=== PATIENT | male | born 1970 | race Caucasian/White ===

== ENCOUNTER 2017-01-28 10:37 | Emergency (ER) | payer MEDICAID ==
[2017-01-28 11:30] LABS: BASOPHILS 0.5 % (0-2); EOSINOPHILS 0.6 % (0-7); HEMATOCRIT 47.3 % (42.0-54.0); HEMOGLOBIN 16.3 g/dL (13.5-17.5); IMMATURE GRANULOCYTES 0.2 % (0-5); LYMPHOCYTES 43.4 % (15-50); MCH 32.2 pg (26.0-34.0); MCHC 34.5 g/dL (31.0-37.0); MCV 93.5 fL (80.0-100.0); MEAN PLATELET VOLUME 9.2 fL (7.4-10.4); MONOCYTES 13.6 % (2-11); NEUTROPHILS 41.7 % (40-80); PLATELET COUNT 313 10x3/uL (130-400); RBC 5.06 10x6/uL (4.20-6.10); RDW 13.6 % (11.5-14.5); WBC 6.4 10x3/uL (4.8-10.8)
[2017-01-28 11:46] LABS: ALBUMIN 3.7 g/dL (3.4-5.0); ALKALINE PHOSPHATASE 77 U/L (46-116); ALT (SGPT) 46 U/L (10-68); AMYLASE - SERUM 91 U/L (25-115); BILIRUBIN - TOTAL 0.13 mg/dL (0.2-1.3); CALC OSMOLALITY 283 mosm/kg (275-300); CALCIUM 9.2 mg/dL (8.5-10.1); CARBON DIOXIDE 28.4 mmol/L (21.0-32.0); CHLORIDE - SERUM 102 mmol/L (98-107); CREATININE - SERUM 1.1 mg/dL (0.6-1.3); GLUCOSE 235 mg/dL (74-106); LIPASE 274 U/L (73-393); POTASSIUM - SERUM 4.1 mmol/L (3.5-5.1); PROTEIN - SERUM 7.5 g/dL (6.4-8.2); SODIUM 139 mmol/L (136-145); UREA NITROGEN 8 mg/dL (7-18); eGFR NON AFRICAN AMERICAN 77 mL/min (90-120)
[2017-01-29] MEDS ORDERED: LISINOPRIL10 MG PO (03:58)
[2017-01-29] MEDS ORDERED: METOPROLOL TART50 MG PO (03:59)
[2017-01-29] MEDS ORDERED: XANAX1 MG PO (04:00)
[2017-01-29] MEDS ORDERED: CATAPRES0.1 MG PO (04:01)
[2017-01-29] MEDS ORDERED: NALTREXONE HCL50 MG PO (04:02)
[2017-01-29] MEDS ORDERED: ZOFRAN4 MG PO (04:03)
[2017-01-29 13:16] VITALS: BMI 29.4
== END 2017-01-28 14:55 | disposition home or self-care (01) ==
LOC: D.ER 10:37
PROVIDERS: Emergency Medicine
DX: R10.13 Epigastric pain (principal); F10.10 Alcohol abuse, uncomplicated; K85.90 Acute pancreatitis without necrosis or infection, unspecified; R73.9 Hyperglycemia, unspecified; F17.200 Nicotine dependence, unspecified, uncomplicated

== ENCOUNTER 2017-01-28 18:31 | Inpatient (IN) | payer MEDICAID ==
[~2017-01-28] VITALS: Ht 177.8 cm; Wt 93.0 kg
[2017-01-28 20:50] LABS: ALBUMIN 4.2 g/dL (3.4-5.0); ANION GAP 21.3 mmol/L (8-16); BILIRUBIN - TOTAL 0.22 mg/dL (0.2-1.3); CALCIUM 9.3 mg/dL (8.5-10.1); POTASSIUM - SERUM 4.3 mmol/L (3.5-5.1); PROTEIN - SERUM 7.8 g/dL (6.4-8.2)
[2017-01-28 20:51] LABS: CREATININE - SERUM 1.4 mg/dL (0.6-1.3)
[2017-01-28 21:06] LABS: BASOPHILS 0.2 % (0-2); EOSINOPHILS 0.2 % (0-7); HEMATOCRIT 50.9 % (42.0-54.0); HEMOGLOBIN 17.2 g/dL (13.5-17.5); IMMATURE GRANULOCYTES 0.3 % (0-5); LYMPHOCYTES 13.9 % (15-50); MCH 32.1 pg (26.0-34.0); MCHC 33.8 g/dL (31.0-37.0); MEAN PLATELET VOLUME 9.4 fL (7.4-10.4); MONOCYTES 7.8 % (2-11); NEUTROPHILS 77.6 % (40-80); PLATELET COUNT 281 10x3/uL (130-400); RBC 5.36 10x6/uL (4.20-6.10); RDW 13.8 % (11.5-14.5)
[2017-01-28 21:10] LABS: WBC 17.5 10x3/uL (4.8-10.8)
[2017-01-28 23:23] LABS: APPEARANCE CLEAR (CLEAR); BACTERIA NONE SEEN /hpf (NONE SEEN); BILIRUBIN NEGATIVE (NEGATIVE); COLOR YELLOW (YELLOW); EPITHELIAL CELLS RARE /hpf (0-5); GLUCOSE 50 mg/dL (NEGATIVE); KETONE NEGATIVE (NEGATIVE); LEUKOCYTE ESTERASE NEGATIVE (NEGATIVE); NITRITE NEGATIVE (NEGATIVE); PROTEIN TRACE mg/dL (NEGATIVE); SPECIFIC GRAVITY 1.025 (1.005-1.020); UROBILINOGEN NORMAL (NORMAL); WHITE CELLS - URINE 0-5 /hpf (0-5)
[2017-01-28 23:29] LABS: UDS - AMPHET NEGATIVE QUAL (NEGATIVE); UDS - BARB NEGATIVE QUAL (NEGATIVE); UDS - BENZO POSITIVE QUAL (NEGATIVE); UDS - COCAINE NEGATIVE QUAL (NEGATIVE); UDS - METH NEGATIVE QUAL (NEGATIVE); UDS - OPIATE POSITIVE QUAL (NEGATIVE); UDS - PCP NEGATIVE QUAL (NEGATIVE); UDS - THC POSITIVE QUAL (NEGATIVE)
[2017-01-29] VITALS: BP 176/92
[2017-01-29 00:10] VITALS: BP 176/92; BMI 29.4
[2017-01-29] MEDS ORDERED: LISINOPRIL10 MG PO (03:58)
[2017-01-29] MEDS ORDERED: METOPROLOL TART50 MG PO (03:59)
[2017-01-29 04:00] VITALS: BP 156/71; BP 194/121
[2017-01-29] MEDS ORDERED: XANAX1 MG PO (04:00)
[2017-01-29] MEDS ORDERED: CATAPRES0.1 MG PO (04:01)
[2017-01-29] MEDS ORDERED: NALTREXONE HCL50 MG PO (04:02)
[2017-01-29] MEDS ORDERED: ZOFRAN4 MG PO (04:03)
--- NOTE | 2017-01-29 07:15 | NUR ---
REPORT RECEIVED FROM SUPERVISOR GENERAL NURSE. CALL LIGHT IN REACH.
--- NOTE | 2017-01-29 08:04 | NUR ---
ASSESSMENT COMPLETED. ATIVAN IVP PER SEVERE ANXIETY. OFFERED SCDs BUT REFUSED. DR. COX IN ROOM TO EXAMINE PATIENT. CALL LIGHT IN REACH. WILL CONTINUE WITH PLAN OF CARE.
--- NOTE | 2017-01-29 08:35 | NUR ---
SBP WILL NOT READ ON MACHINE, DBP 141. NEW ORDER FOR CLONIDINE 0.1MG PO AND DILAUDID 1 MG NOW. ADMINISTERED PER ORDER AND ALSO LIBRIUM. PATIENT IS NOW REQUESTING ANOTHER DOSE AT 9. I HAVE EXPLAINED TO HIM THAT HE CANNOT HAVE ANYMORE NARCOTICS AT THIS TIME. PATIENT IS BEGGING FOR MORE AND I EXPLAINED TO HIM AGAIN.
[2017-01-29 09:21] LABS: AMYLASE - SERUM 217 U/L (25-115); LIPASE 2505 U/L (73-393)
--- NOTE | 2017-01-29 10:16 | NUR ---
STATES HE CONTINUES TO VOMIT. PHENERGAN 25 MG IM AND DILAUDID 2 MG SIVP PER C/O PAIN OF 10. OK TO START NEW DOSAGE OF [address] COX.
--- NOTE | 2017-01-29 12:05 | NUR ---
IN BED WITH EYES CLOSED. RESP EVEN AND UNLABORED. CALL LIGHT IN REACH.
[2017-01-29 12:21] VITALS: BP 207/137
[2017-01-29 13:16] VITALS: Ht 177.8 cm; Wt 93.0 kg
--- NOTE | 2017-01-29 14:05 | NUR ---
RESTING,WITHOUT NEEDS.CALL LIGHT IN REACH
--- NOTE | 2017-01-29 14:42 | NUR ---
ATIVAN AND DILAUDID IV. CLONIDINE AND LIBRIUM PO. CALL LIGHT IN REACH.
[2017-01-29 15:47] VITALS: BP 195/139
--- NOTE | 2017-01-29 16:17 | NUR ---
LYING IN BED WITH EYES CLOSED. RESP EVEN AND UNLABORED. CALL LIGHT IN REACH.
--- NOTE | 2017-01-29 16:40 | NUR ---
GIVEN 10 MG APRESOLINE SLOW IVP FOR BP 195/137. HEART RATE 132. WILL MONITOR.
--- NOTE | 2017-01-29 18:23 | NUR ---
DR. GEORGES IN ROOM. IV FLUIDS INCREASED TO 200 CC/HR. DILAUDID IVP PER ORDER. NO OTHER CHANGES IN INITIAL ASSESSMENT. STILL REFUSES SCDs. CALL LIGHT IN REACH. WILL CONTINUE WITH PLAN OF CARE.
[2017-01-29 20:00] VITALS: BP 154/115
[2017-01-30] VITALS: BP 132/83; BP 143/65
--- NOTE | 2017-01-30 01:10 | NUR ---
ASSESSED AT THE BEGINNING OF THE SHIFT. PT IS ALERT AND ORIENTED, ABLE TO VERBALIZE NEEDS. HE IS ABLE TO GET UP TO THE BATHROOM AD GRETEL AND IS ALL OVER THE ROOM AND BED. HIS BP WAS ELEVATED AT EH BEGINNING OF THE SHIFT AND HE HAD A PRN FOR THIS WHICH HE RECEIVED AND IT VROUGHT IT DOWN. NW WE ARE HAVING A PROBLEM WITH HIS HEART RATE BEING IN THE 130'S. IT GETS SLOWER WHEN HE IS ASLEEP BUT WHILE UP AND DOING THINGS IN HIS ROOM IT IS UP THERE. HE HAS AN ORDER TO RUN HIS IV FLUIDS AT 200CC'S AN HR AND WITH HIS BANANA BAG GOING IT IS GIVING HIM THIS AMT. THE BED IS LOW, RAILS UP X'S 2 WITH THE CALL LIGHT AT HAND.
[2017-01-30 04:00] VITALS: BP 135/94
[2017-01-30 06:06] LABS: BASOPHILS 0.1 % (0-2); EOSINOPHILS 0.5 % (0-7); HEMATOCRIT 46.6 % (42.0-54.0); HEMOGLOBIN 15.6 g/dL (13.5-17.5); IMMATURE GRANULOCYTES 0.2 % (0-5); LYMPHOCYTES 16.4 % (15-50); MCH 31.6 pg (26.0-34.0); MCHC 33.5 g/dL (31.0-37.0); MCV 94.5 fL (80.0-100.0); MEAN PLATELET VOLUME 9.6 fL (7.4-10.4); MONOCYTES 6.7 % (2-11); NEUTROPHILS 76.1 % (40-80); RBC 4.93 10x6/uL (4.20-6.10); RDW 13.7 % (11.5-14.5)
[2017-01-30 06:11] LABS: PLATELET COUNT 201 10x3/uL (130-400); WBC 10.6 10x3/uL (4.8-10.8)
[2017-01-30 06:21] LABS: HEMOGLOBIN A1C 6.4 % (4.8-6.0)
[2017-01-30 06:27] LABS: ALBUMIN 3.1 g/dL (3.4-5.0); ALKALINE PHOSPHATASE 95 U/L (46-116); ALT (SGPT) 28 U/L (10-68); AMYLASE - SERUM 186 U/L (25-115); BILIRUBIN - TOTAL 1.03 mg/dL (0.2-1.3); CALC OSMOLALITY 265 mosm/kg (275-300); CALCIUM 8.3 mg/dL (8.5-10.1); CARBON DIOXIDE 25.6 mmol/L (21.0-32.0); CHLORIDE - SERUM 101 mmol/L (98-107); GLUCOSE 142 mg/dL (74-106); LIPASE 1407 U/L (73-393); POTASSIUM - SERUM 4.2 mmol/L (3.5-5.1); PROTEIN - SERUM 6.4 g/dL (6.4-8.2); SODIUM 132 mmol/L (136-145); UREA NITROGEN 11 mg/dL (7-18); eGFR NON AFRICAN AMERICAN 86 mL/min (90-120)
--- NOTE | 2017-01-30 07:05 | NUR ---
PATIENT RECEIVED ALERT IN MID CORONEL POSITION. RESPIRATIONS EVEN AND UNLABORED. SIDE RAILS UP X2. BED IN LOW POSITION. CALL LIGHT IN REACH.
[2017-01-30 07:57] VITALS: BP 126/83
--- NOTE | 2017-01-30 08:32 | NUR ---
ALERT IN BED. NO SIGNS OF DISTRESS NOTED. SCHEDULED MEDICATION ADMINISTERED WELL PRN DILAUDID AND ATIVAN. IV TO RIGHT AC PATENT. NO REDNESS OR INFLAMMATION NOTED. FLUSHES EASY AND IVF INFUSING WITHOUT DIFFICULTY. SIDE RAILS UP X2. BED IN LOW POSITION. CALL LIGHT IN REACH.
--- NOTE | 2017-01-30 11:03 | CN ---
PATIENT NAME:EPIFANIO PHILLIPS MEDICAL RECORD: [id number] : 74 LOCATION:[facility] ADMIT DATE: 01/28/17 ACCOUNT: [id number] CONSULTING PHYSICIAN: MARTA GEORGES MD REFERRING PHYSICIAN: MOISES ISAAC MD DATE OF CONSULTATION: 01/29/2017 GASTROENTEROLOGY CONSULTATION DATE OF CONSULTATION: 01/29/2017. REFERRING PHYSICIAN: Dr. Moises Isaac. 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 He has been in and out of the hospital multiple times over the past year, today with the same symptoms. He actually had one episode of hematemesis several months ago, which led to an EGD which revealed mild esophagitis only. He continues to drink alcohol. On admission, a CT revealed minimal evidence of pancreatitis. His lipase was 2500. PAST MEDICAL HISTORY: As above. He does have hypertension and reflux esophagitis as well as depression. PAST SURGICAL HISTORY: Remarkable for tonsillectomy, neck surgery and jaw surgery. ALLERGIES: LOVENOX. HOME MEDICATIONS: Include lisinopril, Xanax, Lopressor, clonidine, Zofran and Naltrexone. He supposedly is on Protonix, but apparently has not been compliant on taking that. FAMILY HISTORY: Negative for GI diseases. SOCIAL HISTORY: The patient is a longtime smoker and drinker of alcohol. REVIEW OF SYSTEMS: Noncontributory other than in the HPI. PHYSICAL EXAMINATION: GENERAL: Reveals a middle-aged white male in no acute distress. VITAL SIGNS: Stable, afebrile. CHEST: Clear. HEART: Regular rate and rhythm. ABDOMEN: Soft with mild to moderate upper abdominal tenderness. EXTREMITIES: No edema. LABORATORY DATA: Reveals a white count of 17,000, hematocrit is 50, BUN 10, creatinine 1.4, platelet count 281,000. Electrolytes are normal. CT of the abdomen is as above. IMPRESSION: 1. Yspff-fi-[id number] pancreatitis due to alcohol abuse. 2. Dehydration secondary to #1. CONSULT REPORT [id number] EPIFANIO PHILLIPS RECOMMENDATION: 1. Vigorous IV fluids and bowel rest. 2. Agree with IV Protonix. 3. He needs to stop all alcohol products. 4. Nothing further with ____. We will see on a p.r.n. basis. TRANSINT:[id number] Voice Confirmation ID: [id number] DOCUMENT ID: [id number] MARTA GEORGES MD at 1103 CC: MOISES ISAAC MD [id number] DICTATION DATE: 01/29/17 1809 VAT SKIMMER: 01/30/17 0230 ADM IN [place] [id number] [place] [address]
--- NOTE | 2017-01-30 11:43 | NUR ---
SITTING UP ON SIDE OF BED ALERT. C/O PAIN 05/30. DILAUDID ADMINISTERD SLOW IVP PER PRN ORDER. IV TO RIGHT AC PATENT. NO REDNESS OR INFLAMMATION NOTED. SIDE RAILS UP X2. BED IN LOW POSITION. CALL LIGHT IN REACH.
[2017-01-30 11:45] VITALS: BP 121/88
--- NOTE | 2017-01-30 13:15 | NUR ---
UP AMBULATING IN HALLWAY WITHOUT ASSIST. NO SIGNS OF DISTRESS NOTED. WILL CONTINUE TO MONITOR.
--- NOTE | 2017-01-30 16:04 | NUR ---
C/O PAIN TO ABDOMEN 05/30. DILAUDID ADMINISTERED SLOW IVP PER PRN ORDER. IV TO RIGHT AC PATENT. NO REDNESS OR INFLAMMATION NOTED. BED IN LOW POSITION. CALL LIGHT IN REACH.
[2017-01-30 16:13] VITALS: BP 136/92
[2017-01-30 20:00] VITALS: BP 128/84
[2017-01-31] VITALS: BP 115/62; BP 136/101
[2017-01-31 04:00] VITALS: BP 137/94
[2017-01-31 05:29] LABS: BASOPHILS 0.3 % (0-2); EOSINOPHILS 1.7 % (0-7); HEMATOCRIT 39.5 % (42.0-54.0); HEMOGLOBIN 13.1 g/dL (13.5-17.5); IMMATURE GRANULOCYTES 0.2 % (0-5); LYMPHOCYTES 28.4 % (15-50); MCH 31.4 pg (26.0-34.0); MCHC 33.2 g/dL (31.0-37.0); MCV 94.7 fL (80.0-100.0); MEAN PLATELET VOLUME 9.6 fL (7.4-10.4); MONOCYTES 8.7 % (2-11); NEUTROPHILS 60.7 % (40-80); PLATELET COUNT 163 10x3/uL (130-400); RBC 4.17 10x6/uL (4.20-6.10); RDW 13.4 % (11.5-14.5)
[2017-01-31 05:34] LABS: WBC 6.5 10x3/uL (4.8-10.8)
--- NOTE | 2017-01-31 05:40 | NUR ---
ASSESSED AT THE BEGINNING OF THE SHIFT. PT IS ALERT AND ORIENTED, ABLE TO VERBALIZE NEEDS. HE HAS BEEN UP TO TAKE A SHOWER, WALKING IN THE HALLS, ASKING FOR FOOD, AND WATCHING TV. MOST OF THE TIME HE DOSEN'T APPEAR TO BE HURTING MUCH BUT HE IS WATCHING THE CLOCK FOR TIME AND KEEPING UP WITH WHEN HE GETS HIS DILAUDID AND ATIVAN. ONE TIME HE EVEN ASKED FOR PHENERGAN FOR SLEEP BECAUSE IT WAS TOO EARY FOR HIS ATIVAN. FRANCESCA DILLARD MOVED HIS IV SITE TO THE LEFT FOREARM DUE TO COMPLAINTS OF SORENESS OT HIS RIGHT A/C. AT THIS TIME HE IS IN HIS ROOM AND STATES HE WAS AWAKENED BY SOMEONE KNOCKING ON HIS DOOR BUT THERE WAS NO ONE THERE. THE BED IS LOW, RAILS UP X'S 2 WITH THE CALL LIGHT AT HAND.
[2017-01-31 05:58] LABS: AMYLASE - SERUM 76 U/L (25-115); CALC OSMOLALITY 266 mosm/kg (275-300); CALCIUM 8.4 mg/dL (8.5-10.1); CARBON DIOXIDE 23.8 mmol/L (21.0-32.0); CHLORIDE - SERUM 102 mmol/L (98-107); CREATININE - SERUM 1.1 mg/dL (0.6-1.3); GLUCOSE 104 mg/dL (74-106); LIPASE 360 U/L (73-393); SODIUM 134 mmol/L (136-145); UREA NITROGEN 11 mg/dL (7-18); eGFR NON AFRICAN AMERICAN 77 mL/min (90-120)
--- NOTE | 2017-01-31 08:16 | NUR ---
SCHEDULED MEDICATIONS ADMINISTERED AT THIS TIME. ASSESMENT PERFORMED PER FLOWSHEET. PAIN 5/10 ABDOMINALLY AT THIS TIME. IV TO LEFT FOREARM PATENT WITH NO S/S OF INFILTRATION PRESENT. DENIES NEEDS AT PRESENT. SELF AMBULATORY AND SELF POSITIONS FOR COMFORT.
[2017-01-31 09:06] VITALS: BP 163/97
--- NOTE | 2017-01-31 10:31 | NUR ---
PRN ZOFRAN AND DILAUDID ADMINISTERED PER ORDER. PAIN 7/10 ABDOMINALLY. PT DENIES FURTHER NEEDS AT THIS TIME. HOPEFUL FOR D/C HOME TODAY.
[2017-01-31] MEDS ORDERED: ATIVAN1 MG PO (10:56)
[2017-01-31] MEDS ORDERED: HYDROCODONE-APA1 TAB PO (10:56)
[2017-01-31] MEDS ORDERED: LIORESAL 10 MG10 MG PO (10:56)
--- NOTE | 2017-01-31 11:10 | NUR ---
NOTIFIED DR GEORGES THAT PT HAD D/C ORDERS. HE GAVE HIS APPROVAL FOR D/C AT THIS TIME.
--- NOTE | 2017-01-31 11:20 | NUR ---
PROVIDED WITH SANDWICH TRAY AT THIS TIME TO SEE IF HE CAN TOLERATE REGULAR DIET SO THAT HE MAY DISCHARGE HOME.
--- NOTE | 2017-01-31 11:45 | NUR ---
TOLERATING REGULAR DIET WITHOUT NAUSEA OR VOMITING AT THIS TIME. DISCHARGE PAPERWORK REVIEWED AND IV TO LEFT FOREARM D/C WITH CATH TIP INTACT. DENIES QUESTIONS OR CONCERNS. DISCHARGING HOME WITH COUSIN AT THIS TIME.
== END 2017-01-31 11:45 | disposition home or self-care (01) | DRG 440 ==
LOC: D.ER 18:31 → D.MS 20:12
PROVIDERS: Emergency Medicine; Internal Medicine Gastroenterology; ADMIT Emergency Medicine
DX: K86.0 Alcohol-induced chronic pancreatitis (principal); F10.129 Alcohol abuse with intoxication, unspecified; F17.200 Nicotine dependence, unspecified, uncomplicated; K21.9 Gastro-esophageal reflux disease without esophagitis

== ENCOUNTER 2017-03-16 05:50 | Emergency (ER) | payer MEDICAID ==
[2017-01-29 13:16] VITALS: BMI 29.4
[~2017-03-16 05:50] MED LIST: ATIVAN1 MG PO; CATAPRES0.1 MG PO; HYDROCODONE-APA1 TAB PO; LIORESAL 10 MG10 MG PO; LISINOPRIL10 MG PO; METOPROLOL TART50 MG PO; NALTREXONE HCL50 MG PO; XANAX1 MG PO; ZOFRAN4 MG PO
[2017-03-16 07:03] LABS: BASOPHILS 0.2 % (0-2); EOSINOPHILS 0.5 % (0-7); HEMATOCRIT 52.6 % (42.0-54.0); HEMOGLOBIN 18.5 g/dL (13.5-17.5); IMMATURE GRANULOCYTES 0.1 % (0-5); LYMPHOCYTES 45.7 % (15-50); MCH 32.1 pg (26.0-34.0); MCHC 35.2 g/dL (31.0-37.0); MCV 91.3 fL (80.0-100.0); MEAN PLATELET VOLUME 9.1 fL (7.4-10.4); MONOCYTES 8.2 % (2-11); NEUTROPHILS 45.3 % (40-80); RBC 5.76 10x6/uL (4.20-6.10); RDW 13.8 % (11.5-14.5); WBC 8.3 10x3/uL (4.8-10.8)
[2017-03-16 07:07] LABS: PLATELET COUNT 207 10x3/uL (130-400)
[2017-03-16 07:23] LABS: ALKALINE PHOSPHATASE 142 U/L (46-116); ALT (SGPT) 67 U/L (10-68); AMYLASE - SERUM 66 U/L (25-115); BILIRUBIN - TOTAL 0.71 mg/dL (0.2-1.3); CALC OSMOLALITY 279 mosm/kg (275-300); CALCIUM 8.8 mg/dL (8.5-10.1); CHLORIDE - SERUM 102 mmol/L (98-107); CREATININE - SERUM 0.9 mg/dL (0.6-1.3); GLUCOSE 126 mg/dL (74-106); LIPASE 155 U/L (73-393); POTASSIUM - SERUM 4.1 mmol/L (3.5-5.1); SODIUM 140 mmol/L (136-145); UREA NITROGEN 10 mg/dL (7-18); eGFR NON AFRICAN AMERICAN > 90 mL/min (90-120)
[2017-03-16 07:27] LABS: APPEARANCE CLEAR (CLEAR); BILIRUBIN NEGATIVE (NEGATIVE); COLOR DK YELLOW (YELLOW); GLUCOSE NEGATIVE (NEGATIVE); KETONE NEGATIVE (NEGATIVE); LEUKOCYTE ESTERASE NEGATIVE (NEGATIVE); NITRITE NEGATIVE (NEGATIVE); PROTEIN 3+ mg/dL (NEGATIVE); SPECIFIC GRAVITY 1.015 (1.005-1.020); UROBILINOGEN NORMAL (NORMAL)
[2017-03-16 07:29] LABS: EPITHELIAL CELLS 0-5 /hpf (0-5); RED CELLS - URINE 0-5 /hpf (0-5); WHITE CELLS - URINE 0-5 /hpf (0-5)
[2017-03-16 07:30] LABS: BACTERIA FEW /hpf (NONE SEEN)
== END 2017-03-16 11:40 | disposition home or self-care (01) ==
LOC: D.ER 05:50
PROVIDERS: Emergency Medicine
DX: F10.239 Alcohol dependence with withdrawal, unspecified (principal); F10.20 Alcohol dependence, uncomplicated; K29.20 Alcoholic gastritis without bleeding; F17.200 Nicotine dependence, unspecified, uncomplicated

== ENCOUNTER 2017-03-17 06:12 | Emergency (ER) | payer MEDICAID ==
[2017-01-29 13:16] VITALS: BMI 29.4
[2017-03-17 06:57] LABS: HEMATOCRIT 44.9 % (42.0-54.0); HEMOGLOBIN 15.4 g/dL (13.5-17.5); MCHC 34.3 g/dL (31.0-37.0); MCV 93.2 fL (80.0-100.0); MEAN PLATELET VOLUME 9.2 fL (7.4-10.4); RBC 4.82 10x6/uL (4.20-6.10); RDW 13.7 % (11.5-14.5)
[2017-03-17 07:01] LABS: PLATELET COUNT 165 10x3/uL (130-400); WBC 5.2 10x3/uL (4.8-10.8)
[2017-03-17 07:04] LABS: INR 0.86 (0.85-1.17); PROTIME 11.6 SECONDS (11.6-15.0)
[2017-03-17 07:06] LABS: ALBUMIN 3.4 g/dL (3.4-5.0); ALKALINE PHOSPHATASE 118 U/L (46-116); ALT (SGPT) 58 U/L (10-68); BILIRUBIN - TOTAL 0.36 mg/dL (0.2-1.3); CALC OSMOLALITY 288 mosm/kg (275-300); CALCIUM 8.2 mg/dL (8.5-10.1); CARBON DIOXIDE 24.5 mmol/L (21.0-32.0); CHLORIDE - SERUM 106 mmol/L (98-107); CREATININE - SERUM 0.7 mg/dL (0.6-1.3); GLUCOSE 145 mg/dL (74-106); POTASSIUM - SERUM 3.6 mmol/L (3.5-5.1); PROTEIN - SERUM 6.9 g/dL (6.4-8.2); SODIUM 144 mmol/L (136-145); UREA NITROGEN 9 mg/dL (7-18); eGFR NON AFRICAN AMERICAN > 90 mL/min (90-120)
[2017-03-17 07:51] LABS: EOSINOPHILS 1 % (0-7); LYMPHOCYTES 63 % (15-50); MONOCYTES 5 % (2-11); NEUTROPHILS 28 % (40-80); PLATELET ESTIMATE NORMAL
== END 2017-03-17 10:31 | disposition home or self-care (01) ==
LOC: D.ER 06:12
PROVIDERS: Emergency Medicine Emergency Medical Services
DX: F10.129 Alcohol abuse with intoxication, unspecified (principal); F10.10 Alcohol abuse, uncomplicated; F17.200 Nicotine dependence, unspecified, uncomplicated

== ENCOUNTER 2017-04-27 03:47 | Emergency (ER) | payer MEDICAID ==
[2017-01-29 13:16] VITALS: BMI 29.4
[2017-04-27 04:35] LABS: HEMATOCRIT 48.6 % (42.0-54.0); HEMOGLOBIN 17.3 g/dL (13.5-17.5); MCH 32.5 pg (26.0-34.0); MCHC 35.6 g/dL (31.0-37.0); MCV 91.4 fL (80.0-100.0); MEAN PLATELET VOLUME 9.5 fL (7.4-10.4); RBC 5.32 10x6/uL (4.20-6.10); RDW 14.6 % (11.5-14.5); WBC 5.5 10x3/uL (4.8-10.8)
[2017-04-27 04:38] LABS: PLATELET COUNT 254 10x3/uL (130-400)
[2017-04-27 04:39] LABS: ALBUMIN 4.3 g/dL (3.4-5.0); ALKALINE PHOSPHATASE 93 U/L (46-116); ALT (SGPT) 81 U/L (10-68); AMYLASE - SERUM 90 U/L (25-115); BILIRUBIN - TOTAL 0.29 mg/dL (0.2-1.3); CALC OSMOLALITY 278 mosm/kg (275-300); CALCIUM 9.1 mg/dL (8.5-10.1); CARBON DIOXIDE 22.3 mmol/L (21.0-32.0); CHLORIDE - SERUM 102 mmol/L (98-107); CREATININE - SERUM 0.8 mg/dL (0.6-1.3); GLUCOSE 151 mg/dL (74-106); LIPASE 196 U/L (73-393); POTASSIUM - SERUM 4.5 mmol/L (3.5-5.1); PROTEIN - SERUM 8.6 g/dL (6.4-8.2); SODIUM 139 mmol/L (136-145); UREA NITROGEN 7 mg/dL (7-18); eGFR NON AFRICAN AMERICAN > 90 mL/min (90-120)
[2017-04-27 04:59] LABS: BASOPHILS 2 % (0-2); LYMPHOCYTES 71 % (15-50); MONOCYTES 3 % (2-11); NEUTROPHILS 23 % (40-80); PLATELET ESTIMATE NORMAL; PLATELET MORPHOLOGY PLT CLUMPS PRESENT
== END 2017-04-27 05:53 | disposition left against medical advice (07) ==
LOC: D.ER 03:47
PROVIDERS: Emergency Medicine Emergency Medical Services
DX: K29.00 Acute gastritis without bleeding (principal); F10.10 Alcohol abuse, uncomplicated; F17.200 Nicotine dependence, unspecified, uncomplicated

== ENCOUNTER 2017-05-16 14:01 | Emergency (ER) | payer MEDICAID ==
[2017-01-29 13:16] VITALS: BMI 29.4
[2017-05-16 14:37] LABS: APPEARANCE CLEAR (CLEAR); BILIRUBIN NEGATIVE (NEGATIVE); COLOR YELLOW (YELLOW); GLUCOSE NEGATIVE (NEGATIVE); KETONE SMALL mg/dL (NEGATIVE); LEUKOCYTE ESTERASE NEGATIVE (NEGATIVE); NITRITE NEGATIVE (NEGATIVE); PROTEIN TRACE mg/dL (NEGATIVE); SPECIFIC GRAVITY 1.005 (1.005-1.020); UROBILINOGEN NORMAL (NORMAL)
[2017-05-16 14:40] LABS: BACTERIA FEW /hpf (NONE SEEN); RED CELLS - URINE 0-5 /hpf (0-5); WHITE CELLS - URINE 0-5 /hpf (0-5)
[2017-05-16 16:50] LABS: BASOPHILS 0.5 % (0-2); EOSINOPHILS 0.5 % (0-7); HEMOGLOBIN 16.2 g/dL (13.5-17.5); IMMATURE GRANULOCYTES 0.2 % (0-5); LYMPHOCYTES 49.6 % (15-50); MCH 32.8 pg (26.0-34.0); MCHC 34.5 g/dL (31.0-37.0); MCV 95.1 fL (80.0-100.0); MEAN PLATELET VOLUME 9.2 fL (7.4-10.4); MONOCYTES 9.4 % (2-11); NEUTROPHILS 39.8 % (40-80); PLATELET COUNT 171 10x3/uL (130-400); RBC 4.94 10x6/uL (4.20-6.10); RDW 14.8 % (11.5-14.5); WBC 6.4 10x3/uL (4.8-10.8)
[2017-05-16 17:03] LABS: ALBUMIN 4.3 g/dL (3.4-5.0); ALKALINE PHOSPHATASE 82 U/L (46-116); ALT (SGPT) 194 U/L (10-68); AMYLASE - SERUM 74 U/L (25-115); CALC OSMOLALITY 275 mosm/kg (275-300); CALCIUM 9.1 mg/dL (8.5-10.1); CARBON DIOXIDE 23.2 mmol/L (21.0-32.0); CHLORIDE - SERUM 100 mmol/L (98-107); LIPASE 177 U/L (73-393); MAGNESIUM - SERUM 2.1 mg/dL (1.8-2.4); POTASSIUM - SERUM 4.1 mmol/L (3.5-5.1); PROTEIN - SERUM 8.1 g/dL (6.4-8.2); SODIUM 140 mmol/L (136-145); UREA NITROGEN 6 mg/dL (7-18); eGFR NON AFRICAN AMERICAN 86 mL/min (90-120)
[2017-05-16 17:04] LABS: GLUCOSE 81 mg/dL (74-106)
== END 2017-05-16 18:20 | disposition home or self-care (01) ==
LOC: D.ER 14:01
PROVIDERS: Emergency Medicine
DX: R10.9 Unspecified abdominal pain (principal); F10.10 Alcohol abuse, uncomplicated; R19.7 Diarrhea, unspecified; F17.200 Nicotine dependence, unspecified, uncomplicated

== ENCOUNTER 2017-05-16 22:49 | Emergency (ER) | payer MEDICAID ==
[2017-01-29 13:16] VITALS: BMI 29.4
== END 2017-05-17 02:10 | disposition home or self-care (01) ==
LOC: D.ER 22:49
DX: F10.239 Alcohol dependence with withdrawal, unspecified (principal); R10.13 Epigastric pain; K29.20 Alcoholic gastritis without bleeding; R11.0 Nausea; F17.200 Nicotine dependence, unspecified, uncomplicated

== ENCOUNTER 2017-06-27 10:09 | Emergency (ER) | payer MEDICAID ==
[2017-01-29 13:16] VITALS: BMI 29.4
== END 2017-06-27 12:25 | disposition home or self-care (01) ==
LOC: D.ER 10:09
DX: S29.012A Strain of muscle and tendon of back wall of thorax, initial encounter (principal); W10.9XXA Fall (on) (from) unspecified stairs and steps, initial encounter; Y93.89 Activity, other specified; Y92.029 Unspecified place in mobile home as the place of occurrence of the external cause; F17.200 Nicotine dependence, unspecified, uncomplicated

== ENCOUNTER 2017-09-29 15:18 | Emergency (ER) | payer MEDICAID ==
[2017-01-29 13:16] VITALS: BMI 29.4
[2017-09-29 16:16] LABS: BASOPHILS 0.2 % (0-2); EOSINOPHILS 0.3 % (0-7); HEMATOCRIT 49.2 % (42.0-54.0); HEMOGLOBIN 17.5 g/dL (13.5-17.5); IMMATURE GRANULOCYTES 0.1 % (0-5); LYMPHOCYTES 34.4 % (15-50); MCH 31.9 pg (26.0-34.0); MCHC 35.6 g/dL (31.0-37.0); MCV 89.8 fL (80.0-100.0); MEAN PLATELET VOLUME 9.1 fL (7.4-10.4); MONOCYTES 5.2 % (2-11); NEUTROPHILS 59.8 % (40-80); PLATELET COUNT 174 10x3/uL (130-400); RBC 5.48 10x6/uL (4.20-6.10); RDW 12.9 % (11.5-14.5); WBC 9.6 10x3/uL (4.8-10.8)
[2017-09-29 16:39] LABS: ALBUMIN 4.6 g/dL (3.4-5.0); ALKALINE PHOSPHATASE 104 U/L (46-116); ALT (SGPT) 56 U/L (10-68); AMYLASE - SERUM 87 U/L (25-115); BILIRUBIN - TOTAL 0.87 mg/dL (0.2-1.3); CALC OSMOLALITY 266 mosm/kg (275-300); CALCIUM 9.4 mg/dL (8.5-10.1); CARBON DIOXIDE 20.4 mmol/L (21.0-32.0); CHLORIDE - SERUM 97 mmol/L (98-107); CREATININE - SERUM 0.8 mg/dL (0.6-1.3); GLUCOSE 99 mg/dL (74-106); LIPASE 219 U/L (73-393); PROTEIN - SERUM 8.3 g/dL (6.4-8.2); SODIUM 134 mmol/L (136-145); UREA NITROGEN 10 mg/dL (7-18); eGFR NON AFRICAN AMERICAN > 90 mL/min (90-120)
== END 2017-09-29 17:49 | disposition home or self-care (01) ==
LOC: D.ER 15:18
PROVIDERS: Emergency Medicine
DX: R10.9 Unspecified abdominal pain (principal); R11.10 Vomiting, unspecified; F17.200 Nicotine dependence, unspecified, uncomplicated

== ENCOUNTER 2017-09-30 12:05 | Emergency (ER) | payer MEDICAID ==
[2017-01-29 13:16] VITALS: BMI 29.4
[2017-09-30 12:59] LABS: BASOPHILS 0.3 % (0-2); EOSINOPHILS 0.8 % (0-7); HEMATOCRIT 45.9 % (42.0-54.0); IMMATURE GRANULOCYTES 0.2 % (0-5); MCH 31.4 pg (26.0-34.0); MCHC 34.9 g/dL (31.0-37.0); MEAN PLATELET VOLUME 9.3 fL (7.4-10.4); MONOCYTES 10.3 % (2-11); NEUTROPHILS 57.4 % (40-80); PLATELET COUNT 168 10x3/uL (130-400); RDW 13.1 % (11.5-14.5)
[2017-09-30 13:04] LABS: WBC 6.3 10x3/uL (4.8-10.8)
[2017-09-30 13:09] LABS: APPEARANCE CLEAR (CLEAR); BILIRUBIN NEGATIVE (NEGATIVE); COLOR DK YELLOW (YELLOW); GLUCOSE NEGATIVE (NEGATIVE); KETONE SMALL mg/dL (NEGATIVE); NITRITE NEGATIVE (NEGATIVE); PROTEIN 1+ mg/dL (NEGATIVE); SPECIFIC GRAVITY 1.025 (1.005-1.020); UROBILINOGEN NORMAL (NORMAL)
[2017-09-30 13:12] LABS: BACTERIA FEW /hpf (NONE SEEN); EPITHELIAL CELLS 0-5 /hpf (0-5); MUCUS >1+ /lpf (NONE SEEN); RED CELLS - URINE 0-5 /hpf (0-5)
[2017-09-30 13:20] LABS: ALBUMIN 4.1 g/dL (3.4-5.0); ALKALINE PHOSPHATASE 98 U/L (46-116); CALC OSMOLALITY 280 mosm/kg (275-300); CALCIUM 9.2 mg/dL (8.5-10.1); CARBON DIOXIDE 25.1 mmol/L (21.0-32.0); CHLORIDE - SERUM 103 mmol/L (98-107); GLUCOSE 113 mg/dL (74-106); LIPASE 241 U/L (73-393); SODIUM 141 mmol/L (136-145); UREA NITROGEN 10 mg/dL (7-18); eGFR NON AFRICAN AMERICAN 86 mL/min (90-120)
[2017-09-30 13:21] LABS: ALT (SGPT) 100 U/L (10-68); POTASSIUM - SERUM 4.9 mmol/L (3.5-5.1)
== END 2017-09-30 16:04 | disposition home or self-care (01) ==
LOC: D.ER 12:05
PROVIDERS: Emergency Medicine
DX: R10.9 Unspecified abdominal pain (principal); F10.231 Alcohol dependence with withdrawal delirium; F17.200 Nicotine dependence, unspecified, uncomplicated

== ENCOUNTER → 2017-11-15 11:30 | Outpatient (CLI) | payer MEDICAID ==
[2017-01-29 13:16] VITALS: BMI 29.4
== END | disposition home or self-care (01) ==
LOC: D.MRI 11:30
DX: S46.001A Unspecified injury of muscle(s) and tendon(s) of the rotator cuff of right shoulder, initial encounter (principal)

== ENCOUNTER → 2017-12-23 13:30 | Outpatient (CLI) | payer MEDICAID ==
[2017-01-29 13:16] VITALS: BMI 29.4
== END | disposition home or self-care (01) ==
LOC: D.MRI 13:30
DX: M25.511 Pain in right shoulder (principal)

== ENCOUNTER 2017-12-23 15:24 | Emergency (ER) | payer MEDICAID ==
[2017-01-29 13:16] VITALS: BMI 29.4
== END 2017-12-23 16:33 | disposition home or self-care (01) ==
LOC: D.ER 15:24
DX: G89.18 Other acute postprocedural pain (principal); I10 Essential (primary) hypertension; F17.200 Nicotine dependence, unspecified, uncomplicated

== ENCOUNTER 2017-12-24 12:45 | Emergency (ER) | payer MEDICAID ==
[2017-01-29 13:16] VITALS: BMI 29.4
== END 2017-12-24 14:22 | disposition home or self-care (01) ==
LOC: D.ER 12:45
DX: G89.18 Other acute postprocedural pain (principal); I10 Essential (primary) hypertension; F17.200 Nicotine dependence, unspecified, uncomplicated

== ENCOUNTER 2017-12-26 20:45 | Emergency (ER) | payer MEDICAID ==
[2017-01-29 13:16] VITALS: BMI 29.4
[2017-12-26 22:01] LABS: UDS - AMPHET NEGATIVE QUAL (NEGATIVE); UDS - BARB NEGATIVE QUAL (NEGATIVE); UDS - BENZO POSITIVE QUAL (NEGATIVE); UDS - COCAINE NEGATIVE QUAL (NEGATIVE); UDS - OPIATE POSITIVE QUAL (NEGATIVE); UDS - PCP NEGATIVE QUAL (NEGATIVE); UDS - THC NEGATIVE QUAL (NEGATIVE)
== END 2017-12-26 22:22 | disposition home or self-care (01) ==
LOC: D.ER 20:45
PROVIDERS: Emergency Medicine
DX: G89.18 Other acute postprocedural pain (principal); I10 Essential (primary) hypertension; F17.200 Nicotine dependence, unspecified, uncomplicated

== ENCOUNTER 2018-01-14 00:04 | Emergency (ER) | payer MEDICAID ==
[2017-01-29 13:16] VITALS: BMI 29.4
== END 2018-01-14 01:53 | disposition left against medical advice (07) ==
LOC: D.ER 00:04
DX: S49.91XA Unspecified injury of right shoulder and upper arm, initial encounter (principal); W10.9XXA Fall (on) (from) unspecified stairs and steps, initial encounter; Y93.9 Activity, unspecified; Y92.9 Unspecified place or not applicable

== ENCOUNTER 2018-02-12 22:08 | Emergency (ER) | payer MEDICAID ==
[2017-01-29 13:16] VITALS: BMI 29.4
[2018-02-12 22:28] LABS: APPEARANCE CLEAR (CLEAR); BILIRUBIN NEGATIVE (NEGATIVE); COLOR YELLOW (YELLOW); GLUCOSE NEGATIVE (NEGATIVE); KETONE NEGATIVE (NEGATIVE); NITRITE NEGATIVE (NEGATIVE); PROTEIN 1+ mg/dL (NEGATIVE); SPECIFIC GRAVITY 1.005 (1.005-1.020); UROBILINOGEN NORMAL (NORMAL)
[2018-02-12 22:31] LABS: RED CELLS - URINE 0-5 /hpf (0-5); WHITE CELLS - URINE OCC /hpf (0-5)
[2018-02-12 22:32] LABS: BACTERIA FEW /hpf (NONE SEEN); EPITHELIAL CELLS 0-5 /hpf (0-5)
[2018-02-13 00:03] LABS: BASOPHILS 0.4 % (0-2); EOSINOPHILS 0.8 % (0-7); HEMOGLOBIN 16.1 g/dL (13.5-17.5); IMMATURE GRANULOCYTES 0.1 % (0-5); LYMPHOCYTES 60.8 % (15-50); MCH 32.2 pg (26.0-34.0); MCHC 35.8 g/dL (31.0-37.0); MEAN PLATELET VOLUME 9.3 fL (7.4-10.4); MONOCYTES 6.8 % (2-11); NEUTROPHILS 31.1 % (40-80); RDW 12.6 % (11.5-14.5); WBC 7.1 10x3/uL (4.8-10.8)
[2018-02-13 00:11] LABS: PLATELET COUNT 224 10x3/uL (130-400)
[2018-02-13 00:15] LABS: ALKALINE PHOSPHATASE 110 U/L (46-116); ALT (SGPT) 116 U/L (10-68); AMYLASE - SERUM 71 U/L (25-115); BILIRUBIN - TOTAL 0.25 mg/dL (0.2-1.3); CALC OSMOLALITY 282 mosm/kg (275-300); CALCIUM 8.9 mg/dL (8.5-10.1); CARBON DIOXIDE 26.2 mmol/L (21.0-32.0); CHLORIDE - SERUM 106 mmol/L (98-107); CREATININE - SERUM 0.9 mg/dL (0.6-1.3); GLUCOSE 114 mg/dL (74-106); LIPASE 210 U/L (73-393); POTASSIUM - SERUM 3.8 mmol/L (3.5-5.1); PROTEIN - SERUM 8.1 g/dL (6.4-8.2); SODIUM 143 mmol/L (136-145); UREA NITROGEN 5 mg/dL (7-18); eGFR NON AFRICAN AMERICAN > 90 mL/min (90-120)
== END 2018-02-13 00:32 | disposition left against medical advice (07) ==
LOC: D.ER 22:08
PROVIDERS: Family Medicine
DX: R10.13 Epigastric pain (principal); R00.0 Tachycardia, unspecified

== ENCOUNTER 2018-02-13 13:28 | Emergency (ER) | payer MEDICAID ==
[2017-01-29 13:16] VITALS: BMI 29.4
[2018-02-13 19:40] LABS: UDS - AMPHET NEGATIVE QUAL (NEGATIVE); UDS - BARB NEGATIVE QUAL (NEGATIVE); UDS - BENZO NEGATIVE QUAL (NEGATIVE); UDS - COCAINE NEGATIVE QUAL (NEGATIVE); UDS - OPIATE POSITIVE QUAL (NEGATIVE); UDS - PCP NEGATIVE QUAL (NEGATIVE); UDS - THC NEGATIVE QUAL (NEGATIVE)
== END 2018-02-13 18:11 | disposition home or self-care (01) ==
LOC: D.ER 13:28
PROVIDERS: Emergency Medicine
DX: K29.20 Alcoholic gastritis without bleeding (principal); R10.13 Epigastric pain; F10.20 Alcohol dependence, uncomplicated; F17.200 Nicotine dependence, unspecified, uncomplicated; R00.0 Tachycardia, unspecified

== ENCOUNTER 2018-10-27 03:38 | Inpatient (IN) | payer MEDICAID ==
[~2018-10-27] VITALS: Ht 177.8 cm; Wt 92.2 kg
[2018-10-27 04:17] LABS: BASOPHILS 0.6 % (0-2); EOSINOPHILS 1.4 % (0-7); HEMATOCRIT 42.6 % (42.0-54.0); HEMOGLOBIN 14.6 g/dL (13.5-17.5); LYMPHOCYTES 39.2 % (15-50); MCH 29.9 pg (26.0-34.0); MCHC 34.3 g/dL (31.0-37.0); MCV 87.3 fL (80.0-100.0); MEAN PLATELET VOLUME 9.7 fL (7.4-10.4); MONOCYTES 16.9 % (2-11); NEUTROPHILS 41.9 % (40-80); PLATELET COUNT 153 10x3/uL (130-400); RBC 4.88 10x6/uL (4.20-6.10); RDW 13.6 % (11.5-14.5); WBC 3.6 10x3/uL (4.8-10.8)
[2018-10-27 04:33] LABS: ALBUMIN 3.2 g/dL (3.4-5.0); ALKALINE PHOSPHATASE 65 U/L (46-116); ALT (SGPT) 20 U/L (10-68); BILIRUBIN - TOTAL 0.21 mg/dL (0.2-1.3); CALC OSMOLALITY 265 mosm/kg (275-300); CALCIUM 8.6 mg/dL (8.5-10.1); CARBON DIOXIDE 27.6 mmol/L (21.0-32.0); CHLORIDE - SERUM 95 mmol/L (98-107); CREATININE - SERUM 0.9 mg/dL (0.6-1.3); GLUCOSE 103 mg/dL (74-106); POTASSIUM - SERUM 3.5 mmol/L (3.5-5.1); PROTEIN - SERUM 6.8 g/dL (6.4-8.2); SODIUM 132 mmol/L (136-145); UREA NITROGEN 16 mg/dL (7-18); eGFR NON AFRICAN AMERICAN > 90 mL/min (90-120)
[2018-10-27 04:36] LABS: AMYLASE - SERUM 57 U/L (25-115); LIPASE 171 U/L (73-393); TROPONIN-I < 0.017 ng/mL (0.000-0.060)
[2018-10-27 06:22] LABS: APPEARANCE CLEAR (CLEAR); BILIRUBIN NEGATIVE (NEGATIVE); COLOR YELLOW (YELLOW); GLUCOSE NEGATIVE (NEGATIVE); KETONE NEGATIVE (NEGATIVE); NITRITE NEGATIVE (NEGATIVE); PROTEIN NEGATIVE (NEGATIVE); UROBILINOGEN NORMAL (NORMAL)
[2018-10-27 06:25] LABS: BACTERIA FEW /hpf (NONE SEEN); EPITHELIAL CELLS RARE /hpf (0-5); RED CELLS - URINE 0-5 /hpf (0-5); WHITE CELLS - URINE RARE /hpf (0-5)
--- NOTE | 2018-10-27 09:35 | NUR ---
PATIENT ADMITTED TO UNIT VIA WC FROM ER. PATIENT IS AWAKE, ALERT AND ORIENTED X 4. PATIENT COMPLAINS OF ABDOMINAL PAIN OF 10 . PATIENT RECIEVED MORPHINE IN THE ER. WILL TREAT ACCORDING TO MAR WITH MORPHINE PUMP. PATIENT PAYING IN BED WITH SR UP BED IN LOW POSITION AND CALL LIGHT IN REACH.
--- NOTE | 2018-10-27 09:52 | NUR ---
INTIATED PTS MORPHINE WHITE KID BUFFER AND TEACHING PROVIDED FOR NEW SET UP. PT DEMONSTRATED UNDERSTANDING AND VOICED THANKS. PT ALSO WANTING A BOLUS AND REC'D IT WELL. INFUSING VIA R.WRIST WITH NS @125ML/HR ORDERED. PT IS NEEDING A ZOFRAN DRIP, WAITING ON PHARMACY TO PROVIDE. PT ALSO NEEDS PROTONIX DRIP HOWEVER COMPATABILITY IS UNKNOWN SO ATTEMPTED TO RESITE HOWEVER UNSUCCESSFUL X2 ATTEMPTS. WILL CALL VASCULAR NURSE FOR ASSISTANCE AND SECOND PIV. PT DENIES ANY OTHER NEEDS AT THIS TIME. WILL CTM.
[2018-10-27 10:12] VITALS: BP 164/114; BMI 30.1
[2018-10-27] MEDS ORDERED: KLONOPIN1 MG PO (10:32)
[2018-10-27] MEDS ORDERED: ULTRAM50 MG (10:35)
[2018-10-27] MEDS ORDERED: PEPCID AC20 MG PO (10:40)
[2018-10-27 11:00] VITALS: BP 150/110
--- NOTE | 2018-10-27 12:03 | NUR ---
PT REFUSED SCDS HE IS AMBULATORY AND DOESNT LIKE IT ON HIM.
[2018-10-27 13:12] LABS: CKMB 1.3 U/L (0.0-3.6); CREATINE KINASE 161 UL (21-232); TROPONIN-I < 0.017 ng/mL (0.000-0.060)
[2018-10-27 14:26] VITALS: Ht 177.8 cm; Wt 92.2 kg
[2018-10-27 15:00] VITALS: BP 15/104
[2018-10-27 15:38] LABS: CHOL - HDL RATIO 4.7 ratio (2.3-4.9); LDL-HDL RATIO 2.8 ratio (1.5-3.5)
--- NOTE | 2018-10-27 17:10 | NUR ---
D/C MORPHINE FLOW MACHINE OPERATOR AND WILL INITIATE DILAUDID FLOW MACHINE OPERATOR ORDERED.
--- NOTE | 2018-10-27 17:53 | NUR ---
PATIENT LAYING IN BED ON BACK WITH GIRLFRIEND AT SIDE. PATIENT USING DILAUDED PUMP PRN. PATIENT DENIES ANY NEEDS AT THIS TIME. WILL CONTINUE TO MONITOR.
[2018-10-27 18:02] LABS: CKMB 0.9 U/L (0.0-3.6); CREATINE KINASE 196 UL (21-232)
[2018-10-27 18:04] LABS: TROPONIN-I < 0.017 ng/mL (0.000-0.060)
[2018-10-27 20:00] VITALS: BP 134/80
[2018-10-28] VITALS: BP 117/86
[2018-10-28 04:00] VITALS: BP 148/100
[2018-10-28 05:00] LABS: BASOPHILS 0.6 % (0-2); EOSINOPHILS 0.6 % (0-7); HEMOGLOBIN 13.7 g/dL (13.5-17.5); LYMPHOCYTES 42.6 % (15-50); MCH 30.1 pg (26.0-34.0); MCHC 33.4 g/dL (31.0-37.0); MEAN PLATELET VOLUME 9.6 fL (7.4-10.4); MONOCYTES 15.6 % (2-11); NEUTROPHILS 40.6 % (40-80); PLATELET COUNT 136 10x3/uL (130-400); RBC 4.55 10x6/uL (4.20-6.10); RDW 13.6 % (11.5-14.5); WBC 3.3 10x3/uL (4.8-10.8)
[2018-10-28 05:05] LABS: MCV 90.1 fL (80.0-100.0)
[2018-10-28 05:34] LABS: ALBUMIN 3.3 g/dL (3.4-5.0); ALKALINE PHOSPHATASE 63 U/L (46-116); AMYLASE - SERUM 43 U/L (25-115); CALCIUM 8.1 mg/dL (8.5-10.1); CARBON DIOXIDE 27.4 mmol/L (21.0-32.0); CHLORIDE - SERUM 95 mmol/L (98-107); CKMB 0.6 U/L (0.0-3.6); CREATINE KINASE 110 UL (21-232); GLUCOSE 100 mg/dL (74-106); LIPASE 173 U/L (73-393); MAGNESIUM - SERUM 1.7 mg/dL (1.8-2.4); POTASSIUM - SERUM 3.9 mmol/L (3.5-5.1); SODIUM 131 mmol/L (136-145); TROPONIN-I < 0.017 ng/mL (0.000-0.060); eGFR NON AFRICAN AMERICAN 85 mL/min (90-120)
[2018-10-28 05:41] LABS: ALT (SGPT) 13 U/L (10-68); CALC OSMOLALITY 260 mosm/kg (275-300); UREA NITROGEN 8 mg/dL (7-18)
[2018-10-28 07:27] LABS: INR 1.02 (0.85-1.17); PROTIME 12.9 SECONDS (11.6-15.0)
--- NOTE | 2018-10-28 07:35 | NUR ---
REPORT RECEIVED. WILL CONTINUE WITH POC. PT CURRENTLY SITTING ON EDGE OF BED. AT BEDSIDE. PT IS AAO AND UP AD GRETEL. RR EVEN AND UNLABORED ON RA. DILUADID SPEEDER HAND INFUSING @0.2/06/23, NS INFUSING @125ML/HR, PROTONIX INFUSING @10ML/HR, AND ZOFRAN INFUSING @4.7ML/HR VIA R.UPPER ARM MIDLINE. PT DENIES ANY NEEDS AT THIS TIME. WILL CTM.
[2018-10-28 08:15] VITALS: BP 140/88
--- NOTE | 2018-10-28 09:12 | NUR ---
AM MEDICATIONS ADMINISTERED. PT REQUESTED TO BE UNHOOKED FROM PIV TO WALK THE FLOOR. PT INSTRUCTED THAT HE MUST REMAIN NPO STATUS AFTER 0900 FOR PROCEDURE. PT VERBALIZED UNDERSTANDING AND AGREED TO COMPLY. PT STATED THAT HE WOULD RETURN WITHIN 5 MINUTES OF AFTER WALKING THE FLOOR. INSTRUCTED THE PATIENT THAT I WOULD NOT BE ABLE UNHOOK HIS FLUIDS R/T MULTIPLE DRIPS INFUSING SIMULTANEOUSLY. ENTERED THE ROOM @0916 AND FOUND THAT THE PATIENT HAD UNHOOKED ALL FLUIDS FROM PIV AND MANUALLY TURNED EACH INFUSION PUMP OFF. WILL NOTIFY CHARGE NURSE. WILL INSTRUCT PATIENT THAT BEHAVIOR IS NOT ALLOWED.
--- NOTE | 2018-10-28 09:18 | NUR ---
UP ADLIB IN ROOM. IV PATENT. WILL CONT. PLAN OF CARE.
--- NOTE | 2018-10-28 10:32 | NUR ---
PT RETURNED TO ROOM. PT IS AAO AND RR ARE EVEN AND UNLABORED ON RA. PT STATES,"IT WAS NICE TO WALK AROUND BUT I AM ALOT WEAKER THAN I THOUGHT AND HAD TO COME BACK." INSTRUCTED PT TO NOT TOUCH INFUSION PUMPS. PT VERBALIZED COMPLIANCE. RESTARTED INFUSION OF PROTONIX, ZOFRAN, DILUADID QUICK SKETCH ARTIST, AND NS. R.HAND PIV INFILTRATED. RAN COMPATIBILITY REPORT OF MEDICATIONS AND RECEIVED REPORT THAT PROTONIX AND ZOFRAN ARE UNCOMPATABLE. STOPPED INFUSION OF ZOFRAN R/T ONLY HAVING ONE VASCULAR ACCESS. PLACED NEW DILUADID SYRINGE IN QUICK SKETCH ARTIST. THERE WAS NO MEDICATION IN THE OLD SYRINGE. PROTNIX INFUSING @10ML/HR, NS INFUSING @125ML/HR AND DILUADID SET FOR 0.2/Q10/4 HOUR LOCKOUT VIA R.UPPER ARM MIDLINE. WILL CTM.
[2018-10-28 11:41] VITALS: BP 148/104
--- NOTE | 2018-10-28 19:31 | NUR ---
RECIEVED UP IN BED WITH EYES OPEN AND TV ON. GIRLFRIEND AT BEDSIDE. ALERT AND ORIENTED X4. UP AD GRETEL. IV TO RIGHT WRIST SL.. ALSO, MIDLINE TO LEFT UPPER ARM WITH DILAUDID DISH UP PERSON AT .2-10-4. NS AT 125ML/HR. ANED PROTONIX AT 10ML/HR. EDUCATED ON ADDICTION AND AA MEETINGS. EXPLAINED THAT HE NEEDS TO INVOLVE HIS PCP IF WANTING TO STOP DRINKING D/T EFFECTS OF WITHDRAWL. AND DANGERS ASSOCIATED WITH IT. VERBAL UNDERSTANDING GIVEN, DENIES ANY PAIN OR ANY OTHER NEEDS. WILL CONT POC.
[2018-10-28 20:00] VITALS: BP 141/86
[2018-10-29 00:27] VITALS: BP 125/89
[2018-10-29 05:14] LABS: ALBUMIN 3.2 g/dL (3.4-5.0); ALKALINE PHOSPHATASE 62 U/L (46-116); ALT (SGPT) 23 U/L (10-68); AMYLASE - SERUM 43 U/L (25-115); BILIRUBIN - TOTAL 0.33 mg/dL (0.2-1.3); CALC OSMOLALITY 266 mosm/kg (275-300); CHLORIDE - SERUM 98 mmol/L (98-107); GLUCOSE 134 mg/dL (74-106); LIPASE 140 U/L (73-393); MAGNESIUM - SERUM 1.9 mg/dL (1.8-2.4); POTASSIUM - SERUM 3.7 mmol/L (3.5-5.1); PROTEIN - SERUM 6.7 g/dL (6.4-8.2); SODIUM 133 mmol/L (136-145); UREA NITROGEN 10 mg/dL (7-18); eGFR NON AFRICAN AMERICAN 85 mL/min (90-120)
[2018-10-29 05:30] LABS: BASOPHILS 0.3 % (0-2); EOSINOPHILS 0.6 % (0-7); HEMATOCRIT 40.3 % (42.0-54.0); HEMOGLOBIN 13.6 g/dL (13.5-17.5); LYMPHOCYTES 53.7 % (15-50); MCHC 33.7 g/dL (31.0-37.0); MEAN PLATELET VOLUME 9.6 fL (7.4-10.4); MONOCYTES 12.9 % (2-11); NEUTROPHILS 32.5 % (40-80); PLATELET COUNT 139 10x3/uL (130-400); RBC 4.53 10x6/uL (4.20-6.10); RDW 13.4 % (11.5-14.5); WBC 3.5 10x3/uL (4.8-10.8)
--- NOTE | 2018-10-29 07:35 | NUR ---
ASSESSMENT COMPLETED. ALERT AND ORIENTED. TELEMERTY SHOWS SR 87. RIGHT UPPER ARM MIDLINE WITH NS AT 125 AND PROTONIS AT 10. MANUFACTURING QUALITY TECHNICIAN DILAUDID AT 0.2 MG. EVERY 10 MIN. DENIES ANY NEEDS.
--- NOTE | 2018-10-29 13:34 | NUR ---
RESP UNLABORED NAD NOTED
[2018-10-29 15:11] LABS: HEPATITIS C ANTIBODY >11.0 S/CO RAT (0.0-0.9)
[2018-10-29 20:00] VITALS: BP 120/76
--- NOTE | 2018-10-29 20:00 | NUR ---
INITIAL ROUNDS AND ASSESSMENT COMPLETED. PT UP AND ABOUT IN THE HALLWAY AND IN HIS ROOM. DRAGGING HIS IV POLE AROUND, REQUESTING BOLUS OF DILAUDID FOR PAIN. ADMINISTER MEDS AND MONITOR.
--- NOTE | 2018-10-29 21:03 | NUR ---
REQUESTED 0.4MG BOLUS OF DILAUDID GIVEN FOR BREAKTHROUGH PAIN TO LEFT RIB AREA.
[2018-10-30] VITALS: BP 148/96
--- NOTE | 2018-10-30 01:57 | NUR ---
PT RESTING IN ROOM. UP AN DOWN. RESTLESS AND PACING AT TIMES. MONITOR AND CPOC.
[2018-10-30 04:00] VITALS: BP 133/91
--- NOTE | 2018-10-30 04:43 | NUR ---
RESTING WITH EYES CLOSED. NONLABORED RESPIRATIONS. IV DILAUDID CHICKEN STUFFER IN USE. MONITOR AND CPOC.
[2018-10-30 06:16] LABS: BASOPHILS 0.2 % (0-2); EOSINOPHILS 1.8 % (0-7); HEMATOCRIT 41.4 % (42.0-54.0); IMMATURE GRANULOCYTES 0.2 % (0-5); MCH 29.7 pg (26.0-34.0); MCHC 33.8 g/dL (31.0-37.0); MCV 87.9 fL (80.0-100.0); MONOCYTES 8.8 % (2-11); PLATELET COUNT 142 10x3/uL (130-400); RBC 4.71 10x6/uL (4.20-6.10); RDW 13.3 % (11.5-14.5); WBC 4.3 10x3/uL (4.8-10.8)
[2018-10-30 06:45] LABS: ALBUMIN 3.5 g/dL (3.4-5.0); ALKALINE PHOSPHATASE 64 U/L (46-116); ALT (SGPT) 23 U/L (10-68); AMYLASE - SERUM 43 U/L (25-115); BILIRUBIN - TOTAL 0.35 mg/dL (0.2-1.3); CALC OSMOLALITY 265 mosm/kg (275-300); CALCIUM 8.8 mg/dL (8.5-10.1); CARBON DIOXIDE 23.8 mmol/L (21.0-32.0); CHLORIDE - SERUM 97 mmol/L (98-107); CREATININE - SERUM 0.9 mg/dL (0.6-1.3); GLUCOSE 121 mg/dL (74-106); LIPASE 131 U/L (73-393); MAGNESIUM - SERUM 1.8 mg/dL (1.8-2.4); POTASSIUM - SERUM 4.1 mmol/L (3.5-5.1); PROTEIN - SERUM 7.4 g/dL (6.4-8.2); SODIUM 133 mmol/L (136-145); UREA NITROGEN 11 mg/dL (7-18); eGFR NON AFRICAN AMERICAN > 90 mL/min (90-120)
[2018-10-30 08:06] VITALS: BP 153/98; BP 154/70
--- NOTE | 2018-10-30 09:19 | NUR ---
RESTING QUIETLY NAD NOTED
[2018-10-30 10:50] VITALS: BP 153/98
[2018-10-30] MEDS ORDERED: CREON DR 6,0001 EACH PO (14:58)
[2018-10-30] MEDS ORDERED: LISINOPRIL10 MG PO (14:59)
--- NOTE | 2018-10-30 15:15 | NUR ---
PATIENT REFUSED FLU VACCINE PRIOR TO DISCHARGE.
--- NOTE | 2018-10-30 17:24 | NUR ---
ALERT AND ORIENTED X4. SITTING UP IN CHAIR. FAMILY AT BEDSIDE. DISCHARGE INSTRUCTIONS PROVIDED VERBALLY AND WRITTEN. DISCHARGE PAPERS SIGNED ON CHART. DC RT UPPER ARM MIDLINE TIP INTACT. PRESSURE HELD PER PROTOCOL. REFUSE WHEELCHAIR FOR ESCORT TO RIDE. AMBULATES TO RIDE. REMAINS FREE FROM INJURY.
--- NOTE | 2018-10-31 10:46 | MORECARE ---
CASE MANAGEMENT DISCHARGE SUMMARY PATIENT: EPIFANIO PHILLIPS UNIT: [id number] ADM DATE: 10/27/18 AGE: 48 : 74 SEX: M ROOM/BED: D.2130 AUTHOR: TRISTAN ROPER PHYSICIAN: REFERRING PHYSICIAN: GODWIN WEBER MD DATE OF SERVICE: 10/31/18 Discharge Plan Patient Name: EPIFANIO PHILLIPS Facility: [facility]:[place] : 1970 Planned Disposition: Home Anticipated Discharge Date: 10/30/18 Discharge Date: 10/30/2018 Expected LOS: 3 Initial Reviewer: [email or web address] Initial Review Date: 10/31/2018 Generated: 10/31/18 11:46 am Patient Name: EPIFANIO PHILLIPS Page [phone] at 1046 All edits/amendments must be made on the electronic document DICTATION DATE: 10/31/18 1046 NAVAL AIRCREWMAN HELICOPTER: BRYANT 10/31/18 1046 RPT#: [id number] DC DATE:10/30/18 STATUS: DIS IN [facility] [address] [facility] [place] [address] END OF REPORT
[2018-10-31 11:14] LABS: HELICOBACTER PYLORI IGM AB <9.0 units (0.0-8.9)
== END 2018-10-30 17:29 | disposition home or self-care (01) | DRG 440 ==
LOC: D.ER 03:38 → D.M2 06:46
PROVIDERS: Family Medicine; Internal Medicine Gastroenterology; ADMIT Family Medicine
PROC: 05HB33Z Insertion of Infusion Device into Right Basilic Vein, Percutaneous Approach (ICD-10-PCS; principal; 2018-10-27)
PROC: B54MZZA Ultrasonography of Right Upper Extremity Veins, Guidance (ICD-10-PCS; 2018-10-27)
DX: K85.90 Acute pancreatitis without necrosis or infection, unspecified (principal); I10 Essential (primary) hypertension; F32.89 Other specified depressive episodes; K86.1 Other chronic pancreatitis; K29.70 Gastritis, unspecified, without bleeding; B19.20 Unspecified viral hepatitis C without hepatic coma; Z72.0 Tobacco use

== ENCOUNTER 2019-02-03 13:57 | Emergency (ER) | payer MEDICAID ==
[~2019-02-03] VITALS: Ht 177.8 cm; Wt 86.4 kg
[~2019-02-03 13:57] MED LIST changes: +CREON DR 6,0001 EACH PO; +KLONOPIN1 MG PO; +PEPCID AC20 MG PO; +ULTRAM50 MG
[2019-02-03 14:10] VITALS: Ht 177.8 cm; Wt 86.4 kg
[2019-02-03 14:29] LABS: BASOPHILS 0.4 % (0-2); EOSINOPHILS 0.5 % (0-7); HEMOGLOBIN 18.1 g/dL (13.5-17.5); IMMATURE GRANULOCYTES 0.3 % (0-5); LYMPHOCYTES 21.7 % (15-50); MCH 32.3 pg (26.0-34.0); MCHC 35.5 g/dL (31.0-37.0); MCV 90.9 fL (80.0-100.0); MONOCYTES 7.9 % (2-11); NEUTROPHILS 69.2 % (40-80); RBC 5.61 10x6/uL (4.20-6.10); RDW 13.8 % (11.5-14.5); WBC 10.6 10x3/uL (4.8-10.8)
[2019-02-03 14:54] LABS: PLATELET COUNT 269 10x3/uL (130-400)
[2019-02-03 15:06] LABS: APPEARANCE CLEAR (CLEAR); BILIRUBIN NEGATIVE (NEGATIVE); COLOR YELLOW (YELLOW); GLUCOSE NEGATIVE (NEGATIVE); KETONE NEGATIVE (NEGATIVE); NITRITE NEGATIVE (NEGATIVE); PROTEIN TRACE mg/dL (NEGATIVE); SPECIFIC GRAVITY 1.015 (1.005-1.020); UROBILINOGEN NORMAL (NORMAL)
[2019-02-03 15:08] LABS: BACTERIA FEW /hpf (NONE SEEN); RED CELLS - URINE 0-5 /hpf (0-5); WHITE CELLS - URINE OCC /hpf (0-5)
[2019-02-03 15:33] LABS: ALBUMIN 4.4 g/dL (3.4-5.0); ALKALINE PHOSPHATASE 102 U/L (46-116); ALT (SGPT) 30 U/L (10-68); BILIRUBIN - TOTAL 0.95 mg/dL (0.2-1.3); CALC OSMOLALITY 278 mosm/kg (275-300); CALCIUM 9.9 mg/dL (8.5-10.1); CARBON DIOXIDE 26.1 mmol/L (21.0-32.0); CHLORIDE - SERUM 103 mmol/L (98-107); CREATININE - SERUM 0.9 mg/dL (0.6-1.3); GLUCOSE 118 mg/dL (74-106); POTASSIUM - SERUM 4.1 mmol/L (3.5-5.1); PROTEIN - SERUM 8.4 g/dL (6.4-8.2); SODIUM 140 mmol/L (136-145); UREA NITROGEN 9 mg/dL (7-18); eGFR NON AFRICAN AMERICAN > 90 mL/min (90-120)
[2019-02-03 15:38] LABS: AMYLASE - SERUM 63 U/L (25-115); LIPASE 92 U/L (73-393)
[2019-02-03 15:39] LABS: TROPONIN-I < 0.017 ng/mL (0.000-0.060)
[2019-02-03 17:22] VITALS: BP 156/107
== END 2019-02-03 17:23 | disposition home or self-care (01) ==
LOC: D.ER 13:57
PROVIDERS: Emergency Medicine
DX: K86.0 Alcohol-induced chronic pancreatitis (principal)

== ENCOUNTER 2019-03-02 14:55 | Inpatient (IN) | payer MEDICAID ==
[~2019-03-02] VITALS: Ht 177.8 cm; Wt 88.6 kg
--- NOTE | 2019-03-02 00:30 | NUR ---
C/O NAUSEA VOMITING, ZOFRAN AND MORPHINE GIVEN, STATES MORPHINE NOT WORKING NEED SOMETHING TO KNOCK ME OUT
--- NOTE | 2019-03-02 04:30 | NUR ---
MORPHINE AND ZORFRAN GIVEN FOR CONTINUED C/O PAIN
[2019-03-02 15:26] LABS: BASOPHILS 0.4 % (0-2); EOSINOPHILS 0.6 % (0-7); HEMATOCRIT 47.2 % (42.0-54.0); HEMOGLOBIN 17.1 g/dL (13.5-17.5); LYMPHOCYTES 52.6 % (15-50); MCH 32.3 pg (26.0-34.0); MCHC 36.2 g/dL (31.0-37.0); MCV 89.1 fL (80.0-100.0); MEAN PLATELET VOLUME 8.7 fL (7.4-10.4); MONOCYTES 8.5 % (2-11); NEUTROPHILS 37.9 % (40-80); PLATELET COUNT 254 10x3/uL (130-400); RDW 13.3 % (11.5-14.5); WBC 6.7 10x3/uL (4.8-10.8)
[2019-03-02 16:07] LABS: ALKALINE PHOSPHATASE 91 U/L (46-116); ALT (SGPT) 44 U/L (10-68); BILIRUBIN - TOTAL 0.24 mg/dL (0.2-1.3); CALC OSMOLALITY 278 mosm/kg (275-300); CALCIUM 8.7 mg/dL (8.5-10.1); CARBON DIOXIDE 25.9 mmol/L (21.0-32.0); CHLORIDE - SERUM 101 mmol/L (98-107); CREATININE - SERUM 0.9 mg/dL (0.6-1.3); GLUCOSE 106 mg/dL (74-106); POTASSIUM - SERUM 4.5 mmol/L (3.5-5.1); PROTEIN - SERUM 7.6 g/dL (6.4-8.2); SODIUM 139 mmol/L (136-145); UREA NITROGEN 15 mg/dL (7-18); eGFR NON AFRICAN AMERICAN > 90 mL/min (90-120)
[2019-03-02 16:13] LABS: APPEARANCE CLEAR (CLEAR); BILIRUBIN NEGATIVE (NEGATIVE); COLOR STRAW (YELLOW); GLUCOSE NEGATIVE (NEGATIVE); KETONE NEGATIVE (NEGATIVE); NITRITE NEGATIVE (NEGATIVE); PROTEIN NEGATIVE (NEGATIVE); SPECIFIC GRAVITY 1.005 (1.005-1.020); UROBILINOGEN NORMAL (NORMAL)
[2019-03-02 16:14] LABS: BACTERIA NONE SEEN /hpf (NONE SEEN); EPITHELIAL CELLS NSEEN /hpf (0-5); RED CELLS - URINE 0-5 /hpf (0-5); WHITE CELLS - URINE NSEEN /hpf (0-5)
[2019-03-02 16:18] LABS: AMYLASE - SERUM 86 U/L (25-115); CKMB 1.4 U/L (0.0-3.6); CREATINE KINASE 211 UL (21-232); LIPASE 139 U/L (73-393); TROPONIN-I < 0.017 ng/mL (0.000-0.060)
--- NOTE | 2019-03-02 20:15 | NUR ---
ADMITTED TO ROOM ALERT AND ORIENTIATED, C/O PAIN 06/29 TO UPPER ABD AREA, REQUESTING PAIN MEDS, BP ELEVATED 184/133, HAS RECIEVED PAIN AND BP MEDS IN ER, ORIENTIATED TO ROOM CALL LIGHT IN REACH
--- NOTE | 2019-03-02 21:00 | NUR ---
JAMES BUNDLES HANGER WELDING MACHINE OPERATOR GAS NOTIFIED OF ELEVATED BP AND CONTINUED C/O PAIN ORDERS RECIEVED TO GIVE MORPHINE DOSE NOW AND 25 MG OF METROPROLOL DUE TO HAVING RECIEVED 25MG IN ER, AND THEN WAIT 1 HR AND IF BP STILL ELEVATED GIVE HYDRAZILINE ORDERED
--- NOTE | 2019-03-02 22:30 | NUR ---
CONTINUES TO C/O PAIN 06/29, ATIVAN AND TYLENOL GIVEN
[2019-03-03] VITALS (7 sets, daily range): BP systolic 148–191; BP diastolic 91–133; BMI 28.0
--- NOTE | 2019-03-03 01:00 | NUR ---
IV PULLED OUT, RESTARTED X 2 ATTEMPTS 22G RIGHT HAND, CONTINUES TO HAVE DRY HEAVING AND ELEVATED BP , HYDRALIZINE GIVEN ORDERED
[2019-03-03 05:08] LABS: BASOPHILS 0.2 % (0-2); EOSINOPHILS 0.3 % (0-7); HEMATOCRIT 46.3 % (42.0-54.0); HEMOGLOBIN 16.1 g/dL (13.5-17.5); IMMATURE GRANULOCYTES 0.2 % (0-5); LYMPHOCYTES 18.3 % (15-50); MCH 31.1 pg (26.0-34.0); MCHC 34.8 g/dL (31.0-37.0); MCV 89.6 fL (80.0-100.0); MEAN PLATELET VOLUME 8.6 fL (7.4-10.4); MONOCYTES 8.3 % (2-11); NEUTROPHILS 72.7 % (40-80); PLATELET COUNT 243 10x3/uL (130-400); RBC 5.17 10x6/uL (4.20-6.10); RDW 13.3 % (11.5-14.5)
[2019-03-03 05:12] LABS: WBC 13.2 10x3/uL (4.8-10.8)
[2019-03-03 05:17] LABS: CALC OSMOLALITY 275 mosm/kg (275-300); CALCIUM 8.4 mg/dL (8.5-10.1); CARBON DIOXIDE 23.4 mmol/L (21.0-32.0); CHLORIDE - SERUM 101 mmol/L (98-107); CREATININE - SERUM 0.8 mg/dL (0.6-1.3); GLUCOSE 94 mg/dL (74-106); LIPASE 961 U/L (73-393); PHOSPHOROUS 3.3 mg/dL (2.5-4.9); POTASSIUM - SERUM 3.9 mmol/L (3.5-5.1); SODIUM 138 mmol/L (136-145); UREA NITROGEN 13 mg/dL (7-18); eGFR NON AFRICAN AMERICAN > 90 mL/min (90-120)
[2019-03-03 05:21] LABS: AMYLASE - SERUM 115 U/L (25-115)
--- NOTE | 2019-03-03 08:00 | NUR ---
ALERT AND ORIENTED WITH COMPLAINTS OF ABDOMINAL PAIN AND DISCOMFORT ATIVAN AND MORPHINE GIVEN PER MD ORDER WITH PATIENT CONTINUED AMBULATING IN HALLWAY COMPLAINING. ENCOURAGED TO STAY IN ROOM IVF INFUSING AT PRESCRIEDRATE ABDOMEN SOFT WITH BS NOTED. LIBRIUM GIVEN FOR DT SYMPTOMS. ENCOURAGED TO USE CALL LIGHT FOR ASSIST.
[2019-03-03 12:52] LABS: CKMB 2.2 U/L (0.0-3.6); CREATINE KINASE 191 UL (21-232)
[2019-03-03 12:59] LABS: TROPONIN-I < 0.017 ng/mL (0.000-0.060)
[2019-03-03 17:35] LABS: CKMB 1.7 U/L (0.0-3.6); TROPONIN-I 0.044 ng/mL (0.000-0.060)
--- NOTE | 2019-03-03 20:00 | NUR ---
ALERT SITTING UP IN BED. PCADILAUDID IN USE FOR PAIN AND ZOFRAN COATER OPERATOR IN USE FOR NAUSEA, CONTINUES TO C/O UPPER ABD PAIN AND NAUSEA, SEE SHIFT ASSESSMENT, JAMES HERE DISCUSSED PT CONTINUED ELEVATED BP AND NAUSEA, ORDERS RECIEVED FOR EXTRA ZOFRAN AND RENEWED HYDRALIZINE ORDERS FOR B/P. GIVEN, CALL LIGHT IN REACH
[2019-03-03 23:32] LABS: CKMB 2.4 U/L (0.0-3.6); CREATINE KINASE 169 UL (21-232); TROPONIN-I 0.021 ng/mL (0.000-0.060)
[2019-03-04 01:22] VITALS: BP 183/113
[2019-03-04 05:14] VITALS: BP 145/104
[2019-03-04 06:26] LABS: BASOPHILS 0.1 % (0-2); EOSINOPHILS 0 % (0-7); HEMATOCRIT 46.9 % (42.0-54.0); HEMOGLOBIN 16.3 g/dL (13.5-17.5); IMMATURE GRANULOCYTES 0.3 % (0-5); LYMPHOCYTES 9.2 % (15-50); MCH 31.4 pg (26.0-34.0); MCHC 34.8 g/dL (31.0-37.0); MCV 90.4 fL (80.0-100.0); MEAN PLATELET VOLUME 9.2 fL (7.4-10.4); NEUTROPHILS 81.4 % (40-80); RBC 5.19 10x6/uL (4.20-6.10); RDW 13.6 % (11.5-14.5); WBC 13.9 10x3/uL (4.8-10.8)
[2019-03-04 06:32] LABS: PLATELET COUNT 193 10x3/uL (130-400)
[2019-03-04 07:04] LABS: CALC OSMOLALITY 265 mosm/kg (275-300); CALCIUM 8.9 mg/dL (8.5-10.1); CARBON DIOXIDE 20.9 mmol/L (21.0-32.0); CHLORIDE - SERUM 98 mmol/L (98-107); CREATININE - SERUM 0.9 mg/dL (0.6-1.3); GLUCOSE 118 mg/dL (74-106); MAGNESIUM - SERUM 2.2 mg/dL (1.8-2.4); PHOSPHOROUS 2.5 mg/dL (2.5-4.9); POTASSIUM - SERUM 4.2 mmol/L (3.5-5.1); SODIUM 133 mmol/L (136-145); UREA NITROGEN 10 mg/dL (7-18); eGFR NON AFRICAN AMERICAN > 90 mL/min (90-120)
[2019-03-04 07:06] LABS: AMYLASE - SERUM 229 U/L (25-115); LIPASE 1931 U/L (73-393)
--- NOTE | 2019-03-04 07:50 | NUR ---
PT IV TURNED OFF ASKED PT IF HE TURNED IT OFF HE STATED YES, ASKED HIM TO NOT TURN IV OFF AND HE WILL NOT BE ABLE OT GET PAIN MEDICATION IF HE CONTINUES TO TURN OFF IV. LEFT ROOM TO GO INTO NEXT ROOM AND PT WAS ON LIGHT WENT INTO ROOM AND PT IV POLE TURNED OFF AGAIN. STATED HIS IV IS BAD. PT HAND IS SWOLLEN WILL RESITE IV
--- NOTE | 2019-03-04 08:20 | NUR ---
UNABLE TO RESITE PT, ASKED RN SANTANA TO RESITE PT AND SHE WAS UNSUCCESSFUL WELL. RELAYED MESSAGE TO GANGA TYLER. CONTINUE WITH PLAN OF CARE.
[2019-03-04 08:47] VITALS: BP 193/122
[2019-03-04 15:08] VITALS: Ht 177.8 cm; Wt 88.6 kg
[2019-03-04 18:07] VITALS: BP 163/113
--- NOTE | 2019-03-04 19:15 | NUR ---
RECEIVED CARE FROM DAY NURSE. LYING IN BED. NO NEEDS VOICED AT THIS TIME. CALL LIGHT AT SIDE. LEFT TLSC INFUSING PER ORDER.
--- NOTE | 2019-03-04 19:15 | NUR ---
RECEIVED CARE FROM DAY NURSE. DISCONNECTED AND OUT OF ROOM AT THIS TIME.
[2019-03-04 20:00] VITALS: BP 144/106
--- NOTE | 2019-03-04 22:00 | NUR ---
SUCTION PLATE CARRIER CLEANER DILAUDID EMPTY. SETTINGS AT 0.4 MG EVERY 10 MIN WITH A 4MG/4HR LOCKOUT. ORDER IS FOR 0.2 MG. PT REPORTS THE SENIOR LOSS CONTROL SPECIALIST CHANGED IT. AT THIS TIME LEFT AT 0.4. REVIEWED DR NOTES AND NOTHING NOTED STATING SUCTION PLATE CARRIER CLEANER SETTINGS CHANGED. SETTING CHANGED TO 0.2MG EVERY 10 MIN WITH A 4MG/4HR LOCKOUT.
[2019-03-05] VITALS: BP 191/120
--- NOTE | 2019-03-05 01:03 | NUR ---
PUMP ALARMING THAT WOOD ROOM SUPERVISOR BUTTON DEPRESSED TOO LONG. MVI OFF. FIXED AT THIS TIME.
--- NOTE | 2019-03-05 02:20 | NUR ---
PUMP ALAMRING AND MVI TURNED OFF. ALAMRS FIXED AT THIS TIME.
--- NOTE | 2019-03-05 03:30 | NUR ---
PUMP ALARMING. TUBING FOUND TO BE CLAMPED. ASKED ANOTHER NURSE IF HE GOT DISCONNECTED AND NURSE STATES THAT PATIENT DISCONNECTED HIMSELF AND THAT SOMEONE SHOWED HIM HOW.
[2019-03-05 04:00] VITALS: BP 187/101
--- NOTE | 2019-03-05 04:29 | NUR ---
I have reviewed this patient and I concur with the Shift Assessment completed by the Licensed Practical Nurse today this shift.
--- NOTE | 2019-03-05 05:13 | NUR ---
ENTERED ROOM AND IV TUBING WAS DISCONNECTED AND LYING OVER PUMP. ASKED WHY HE WAS DISCONNECTED AND PT STATED HE DIDMT KNOW HE WAS.
[2019-03-05 05:15] LABS: BASOPHILS 0.1 % (0-2); EOSINOPHILS 0.1 % (0-7); HEMATOCRIT 40.7 % (42.0-54.0); HEMOGLOBIN 14.4 g/dL (13.5-17.5); IMMATURE GRANULOCYTES 0.3 % (0-5); LYMPHOCYTES 8.4 % (15-50); MCH 31.5 pg (26.0-34.0); MCHC 35.4 g/dL (31.0-37.0); MCV 89.1 fL (80.0-100.0); MEAN PLATELET VOLUME 9.5 fL (7.4-10.4); NEUTROPHILS 85.1 % (40-80); RBC 4.57 10x6/uL (4.20-6.10); RDW 13.4 % (11.5-14.5); WBC 15.5 10x3/uL (4.8-10.8)
[2019-03-05 05:17] LABS: PLATELET COUNT 120 10x3/uL (130-400)
[2019-03-05 05:36] LABS: AMYLASE - SERUM 79 U/L (25-115); CALC OSMOLALITY 261 mosm/kg (275-300); CALCIUM 8.7 mg/dL (8.5-10.1); CARBON DIOXIDE 23.3 mmol/L (21.0-32.0); CHLORIDE - SERUM 96 mmol/L (98-107); CREATININE - SERUM 0.8 mg/dL (0.6-1.3); GLUCOSE 114 mg/dL (74-106); LIPASE 349 U/L (73-393); MAGNESIUM - SERUM 2.2 mg/dL (1.8-2.4); PHOSPHOROUS 1.7 mg/dL (2.5-4.9); POTASSIUM - SERUM 4.1 mmol/L (3.5-5.1); SODIUM 130 mmol/L (136-145); UREA NITROGEN 12 mg/dL (7-18); eGFR NON AFRICAN AMERICAN > 90 mL/min (90-120)
--- NOTE | 2019-03-05 05:55 | NUR ---
PT CAME OUT TO NURSES DESK. RUSSIAN LANGUAGE PROFESSOR PUMP TURNED OFF. ALL OTHER FLUIDS INFUSING. RESTARTED RUSSIAN LANGUAGE PROFESSOR PUMP.
--- NOTE | 2019-03-05 06:15 | NUR ---
PUMP ALARMING. MIDDLE PURPLE CLAMP OF TLSC NOW MISSING. PUMP ALAMING IN MAINTAINANCE MODE AND NOT FOR HUMAN USE. NEW PUMP PLACED AND BOLUS GIVEN.
[2019-03-05 08:49] VITALS: BP 163/131
--- NOTE | 2019-03-05 12:17 | NUR ---
ALERT AND ORIENTED X3. WEDDING COORDINATOR FOR PAIN MANAGEMENT. LT. IF TRIPLE LUMEN INFOSING AT PRESCRIBED RATE. ZOFRAN INFUSING FOR NAUSEA MANAGEMENT. ENCOURAGED TO USE CALL LIGHT FOR ASSIST. ABDOMEN SOFT WITH BS NOTED X4.
[2019-03-05 12:39] VITALS: BP 182/107
--- NOTE | 2019-03-05 17:35 | MORECARE ---
CASE MANAGEMENT DISCHARGE SUMMARY PATIENT: EPIFANIO PHILLIPS UNIT: [id number] ADM DATE: 03/02/19 AGE: 48 : 74 SEX: M ROOM/BED: D.2231 AUTHOR: TRISTAN ROPER PHYSICIAN: REFERRING PHYSICIAN: JEM RAMAN MD DATE OF SERVICE: 03/05/19 Discharge Plan Patient Name: EPIFANIO PHILLIPS [facility] [facility] 1970 Planned Disposition: Other Type of Facility Anticipated Discharge Date: Discharge Date: Expected LOS: Initial Reviewer: [email or web address] Initial Review Date: 03/02/2019 Generated: 03/05/19 6:34 pm Patient Name: EPIFANIO PHILLIPS Page [phone] at 1738 All edits/amendments must be made on the electronic document DICTATION DATE: 03/05/191733 VEHICLE DISMANTLER: BRYANT 03/05/191733 RPT#: [id number] DC DATE: STATUS: ADM IN [facility] [address] [place] [address] END OF REPORT
--- NOTE | 2019-03-05 17:43 | MORECARE ---
CASE MANAGEMENT DISCHARGE SUMMARY PATIENT: EPIFANIO PHILLIPS UNIT: [id number] ADM DATE: 03/02/19 AGE: 48 : 74 SEX: M ROOM/BED: D.2231 AUTHOR: TRISTAN ROPER PHYSICIAN: REFERRING PHYSICIAN: JEM RAMAN MD DATE OF SERVICE: 03/05/19 Discharge Plan Patient Name: EPIFANIO PHILLIPS Facility: [facility]:[place] : 1970 Planned Disposition: Other Type of Facility Anticipated Discharge Date: Discharge Date: Expected LOS: Initial Reviewer: [email or web address] Initial Review Date: 03/02/2019 Generated: 03/05/19 6:43 pm Comments DCP- Discharge Planning Updated by [email or web address]: Yue Goodrich on 03/05/19 4:[address] CM received request for information for "Getting Sober." Information [phone] [facility]- [phone] [facility] [place] - - [phone] [facility]- [phone] [facility]- [phone] [facility]- cm explained that the patient must call himself to speak with intake for evaluation. Advised the hospital jig box operator can assist placing calls out of town. cm will follow to assist. Last DP export: 03/05/19 4:35 p Patient Name: EPIFANIO PHILLIPS Page [phone] at 1743 All edits/amendments must be made on the electronic document DICTATION DATE: 03/05/191741 GUM WORKER: BRYANT 03/05/191741 RPT#: [id number] DC DATE: STATUS: ADM IN [facility] [address] [place] [address] END OF REPORT
[2019-03-05 17:55] VITALS: BP 172/122
--- NOTE | 2019-03-05 19:15 | NUR ---
RECEIVED CARE FROM DAY NURSE. LYING IN BED WITH NO NEEDS VOICED. CALL LIGHT AT SIDE. IV INFUSING PER ORDER TO LEFT TLSC.
[2019-03-05 20:00] VITALS: BP 124/102
--- NOTE | 2019-03-05 23:39 | NUR ---
SPOKE WITH CYRUS ROSS ABOUT PT C/O NAUSE AND REQUESTING PHENERGAN. ORDER RECEIVED FOR NPO EXCEPT ICE CHIPS AND TO BE RE-EVALED IN AM.
[2019-03-06] VITALS (7 sets, daily range): BP systolic 163–206; BP diastolic 99–129
--- NOTE | 2019-03-06 03:25 | NUR ---
I have reviewed this patient and I concur with the Shift Assessment completed by the Licensed Practical Nurse today this shift.
[2019-03-06 05:30] LABS: BASOPHILS 0 % (0-2); EOSINOPHILS 0.5 % (0-7); HEMATOCRIT 40.1 % (42.0-54.0); IMMATURE GRANULOCYTES 0.1 % (0-5); LYMPHOCYTES 14.9 % (15-50); MCH 31.3 pg (26.0-34.0); MCHC 34.9 g/dL (31.0-37.0); MCV 89.5 fL (80.0-100.0); MEAN PLATELET VOLUME 10.3 fL (7.4-10.4); MONOCYTES 7.7 % (2-11); NEUTROPHILS 76.8 % (40-80); PLATELET COUNT 104 10x3/uL (130-400); RBC 4.48 10x6/uL (4.20-6.10); RDW 13.4 % (11.5-14.5)
[2019-03-06 05:50] LABS: CALCIUM 8.3 mg/dL (8.5-10.1); CARBON DIOXIDE 26.5 mmol/L (21.0-32.0); CHLORIDE - SERUM 98 mmol/L (98-107); CREATININE - SERUM 0.8 mg/dL (0.6-1.3); GLUCOSE 119 mg/dL (74-106); LIPASE 184 U/L (73-393); MAGNESIUM - SERUM 2.3 mg/dL (1.8-2.4); SODIUM 134 mmol/L (136-145); eGFR NON AFRICAN AMERICAN > 90 mL/min (90-120)
[2019-03-06 05:59] LABS: AMYLASE - SERUM 35 U/L (25-115); CALC OSMOLALITY 266 mosm/kg (275-300); POTASSIUM - SERUM 3.2 mmol/L (3.5-5.1); UREA NITROGEN 7 mg/dL (7-18)
[2019-03-06 06:07] LABS: WBC 8.7 10x3/uL (4.8-10.8)
--- NOTE | 2019-03-06 08:55 | NUR ---
PT RESTING WITH EYES CLOSED. RESP EVEN AND UNLABORED. NO ACUTE DISTRESS NOTED. OPENS EYES WITH NAME CALLED TO ADMINISTER AM MEDICATIONS. REPORTS PAIN 8/10 AT THIS TIME. PAIN MEDICATIONS TO BE ADMINISTERED PER MD ORDERS. REPORTS NAUSEA, EDUCATED PT REGARDING ZOFRAN DRIP INFUSING VIA PUMP. CENTRAL LINE TO LEFT CHES WITH NS @ 125ML/HR INFUSING VIA PUMP. SITE WITHOUT REDNESS OR EDEMA. DENIES FURTHER NEEDS AT THIS TIME. CL WITHIN REACH. ENCOURAGED TO CALL WITH NEEDS. CONTINUE POC
--- NOTE | 2019-03-06 12:50 | NUR ---
CALLED REPORT TO [facility] 3 FOR TRANSFER TO ROOM 1200
--- NOTE | 2019-03-06 13:00 | NUR ---
PT TRANSFERED VIA W/C TO ROOM 1201 IV INTACT
--- NOTE | 2019-03-06 18:30 | NUR ---
PT RESTING IN BED WITH EYES OPEN CALL LIGHT IN REACH NO PROBLEMS WILL MONITER
--- NOTE | 2019-03-06 20:27 | NUR ---
PATIENT UNABLE TO KEEP PILLS DOWN AFTER ADMINISTERED. PATIENT REQUESTED IV PAIN MEDS.
--- NOTE | 2019-03-06 20:31 | NUR ---
SPOKE WITH NIKKIE IN PHARMACY TO ENSURE THAT I COULD GIVE THE PATIENT DEMEROL AFTER THE PATIENT VOMITED AFTER GIVING HIM HIS PILLS. NIKKIE STATED THAT THE DEMEROL CAN BE GIVEN, HOWEVER, FOR THE PATIENT TO BE MONITORED CLOSE AFTER THE DEMEROL IS ADMINISTERED.
[2019-03-07 00:54] VITALS: BP 183/115
[2019-03-07 04:43] VITALS: BP 182/120
[2019-03-07 06:53] LABS: BASOPHILS 0.1 % (0-2); EOSINOPHILS 0.6 % (0-7); HEMATOCRIT 38.8 % (42.0-54.0); HEMOGLOBIN 13.7 g/dL (13.5-17.5); IMMATURE GRANULOCYTES 0.1 % (0-5); LYMPHOCYTES 21.4 % (15-50); MCH 31.3 pg (26.0-34.0); MCHC 35.3 g/dL (31.0-37.0); MCV 88.6 fL (80.0-100.0); MEAN PLATELET VOLUME 10.1 fL (7.4-10.4); MONOCYTES 9.5 % (2-11); NEUTROPHILS 68.3 % (40-80); PLATELET COUNT 106 10x3/uL (130-400); RBC 4.38 10x6/uL (4.20-6.10); RDW 13.1 % (11.5-14.5); WBC 6.9 10x3/uL (4.8-10.8)
[2019-03-07 07:16] LABS: CARBON DIOXIDE 27.5 mmol/L (21.0-32.0); CHLORIDE - SERUM 96 mmol/L (98-107); CREATININE - SERUM 0.8 mg/dL (0.6-1.3); LIPASE 256 U/L (73-393); MAGNESIUM - SERUM 2.1 mg/dL (1.8-2.4); PHOSPHOROUS 1.9 mg/dL (2.5-4.9); SODIUM 133 mmol/L (136-145); eGFR NON AFRICAN AMERICAN > 90 mL/min (90-120)
[2019-03-07 07:19] LABS: AMYLASE - SERUM 50 U/L (25-115); CALC OSMOLALITY 268 mosm/kg (275-300); GLUCOSE 214 mg/dL (74-106); POTASSIUM - SERUM 3.3 mmol/L (3.5-5.1); UREA NITROGEN 5 mg/dL (7-18)
--- NOTE | 2019-03-08 11:46 | MORECARE ---
CASE MANAGEMENT DISCHARGE SUMMARY PATIENT: EPIFANIO PHILLIPS UNIT: [id number] ADM DATE: 03/02/19 AGE: 48 : 74 SEX: M ROOM/BED: D.1201 AUTHOR: TRISTAN ROPER PHYSICIAN: REFERRING PHYSICIAN: JEM RAMAN MD DATE OF SERVICE: 03/08/19 Discharge Plan Patient Name: EPIFANIO PHILLIPS Facility: [facility]:[place] : 1970 Planned Disposition: Other Type of Facility Anticipated Discharge Date: Discharge Date: 03/07/2019 Expected LOS: Initial Reviewer: [email or web address] Initial Review Date: 03/02/2019 Generated: 03/08/19 12:45 pm Comments DCP- Discharge Planning Updated by [email or web address]: Yue Goodrich on 03/05/19 4:[address] CM received request for information for "Getting Sober." Information with phone number for : [facility] [phone] [phone] [facility] - - [phone] [facility]- [phone] [facility]- [phone] [facility]- cm explained that the patient must call himself to speak with intake for evaluation. Advised the hospital holiday detector operator can assist placing calls out of town. cm will follow to assist. Last DP export: 03/05/19 4:43 p Patient Name: EPIFANIO PHILLIPS Page [id number] at 1146 All edits/amendments must be made on the electronic document DICTATION DATE: 03/08/19 1145 PAVING BED MAKER: BRYANT 03/08/19 1145 RPT#: [id number] DC DATE:03/07/19 STATUS: DIS IN [facility] [address] [place] [address] END OF REPORT
== END 2019-03-07 14:06 | disposition home or self-care (01) | DRG 439 ==
LOC: D.ER 14:55 → D.MS 19:00 → D.M3 03-06 13:08
PROVIDERS: Family Medicine; ADMIT Family Medicine; ATTEND Family Medicine
PROC: 05H633Z Insertion of Infusion Device into Left Subclavian Vein, Percutaneous Approach (ICD-10-PCS; principal; 2019-03-04)
DX: K86.0 Alcohol-induced chronic pancreatitis (principal); F10.231 Alcohol dependence with withdrawal delirium; I10 Essential (primary) hypertension